=== PATIENT | female | born 1970 | race Caucasian/White ===

== ENCOUNTER 2022-11-23 14:51 | Emergency (ER) | payer OTHER, SELFPAY ==
[2022-11-23] VITALS (8 sets, daily range): BP systolic 112–136; BP diastolic 51–74; PULSE 100–142; RESP 14–22; TEMP 36.6–37.2; O2SAT 98–100; BMI 41.5
--- NOTE | ~2022-11-23 | US_ITS ---
EXAMINATION: US PELVIS CLINICAL INFORMATION: Abnormal vaginal bleeding. COMPARISON: None. TECHNIQUE: Ultrasound of the pelvis is performed using both transabdominal and transvaginal transducers along with Doppler. Transvaginal imaging is performed due to inadequate visualization transabdominally. FINDINGS: UTERUS: The uterus is anteverted and measures 12 x 5.3 x 6 cm. The double wall endometrial thickness is 12 mm. There is complex fluid within the endometrial cavity without Doppler detectable vascular flow. The uterus is smooth in contour and has normal myometrial echogenicity. No visible fibroid. Within the region of the cervix there are lobulated, heterogeneous soft tissue structures measuring approximately 6.1 x 4.6 x 4.6 cm and 3.4 x 3.5 x 4.6 cm with Doppler detectable vascular flow. ADNEXA: Both ovaries are visualized. There is normal color flow to the adnexa. There is no ovarian torsion. There is no pelvic ascites or fluid collection. Right ovary measures 2.8 x 1.9 x 1.9 cm. Right ovarian volume is 5.3 mL. Left ovary measures 4 x 3.9 x 2.9 cm. Left ovarian volume is 23.7 mL. Simple left ovarian cyst versus follicle measuring up to 2.6 cm. US/US pelvic and transvaginal IMPRESSION: 1. Lobulated, heterogeneous soft tissue structures within the region of the cervix measuring up to 6.1 and 4.6 cm with Doppler detectable vascular flow. Findings are concerning for malignancy. Direct visualization could help further evaluate. 2. Complex fluid within the endometrial cavity without Doppler detectable vascular flow. 3. Simple left ovarian cyst versus follicle measuring 2.6 cm.
--- NOTE | 2022-11-23 14:56 | ED.GENADULT ---
HPI - General Adult General Chief complaint: Vaginal Bleeding <NINFA Lundy - Last Filed: 11/23/22 15:01> Stated complaint: lightheaded, Heavy menstrual bleeding <NINFA Lundy - Last Filed: 11/23/22 15:01> Time Seen by Provider: 11/23/22 15:26 <NINFA Lundy - Last Filed: 11/23/22 15:01> Source: patient <Sanaz Estrella NP - Last Filed: 11/23/22 18:33> Mode of arrival: ambulatory <Sanaz Estrella NP - Last Filed: 11/23/22 18:33> Limitations: no limitations <DONTRELL Hawk Last Filed: 11/23/22 18:33> History of Present Illness HPI narrative: 52-year-old female previously healthy who presents to the emergency room with heavy menstrual bleeding for 10 days. Patient reports that over the last 11 months she has had heavy and irregular bleeding. Prior to this she went over 1 year without having any menstrual cycles. Patient reports she started bleeding 10 days ago but over the last 4 days she did increase in bleeding using more than 1 pad per hour w/clots. Patient reports yesterday she started to feel dizzy when she moved around, short of breath and very weak. Patient denies any associated cramping, pain. Patient denies any AC therapy use. Patient last had a Pap smear in 2007 when she saw hand edger and reportedly it was normal. She has not seen a hand edger since 2007. <Sanaz Estrella NP - Last Filed: 11/23/22 18:33> Related Data Allergies/adverse reactions: Allergies Allergy/AdvReac Type Severity Reaction Status Date / Time No Known Allergies Allergy Verified 11/23/22 15:01 <NINFA Lundy - Last Filed: 11/23/22 15:01> Review of Systems Review of Systems: Yes all other systems are reviewed and are negative <Sanaz Estrella NP - Last Filed: 11/23/22 18:33> Constitutional: Constitutional: Reports no additional constitutional complaints, Denies body ache(s), Denies chills, Denies fever(s), Denies headache(s) and Denies weakness <Sanaz Estrella LADDER OPERATOR - Last Filed: 11/23/22 18:33> Eyes: Eyes: Reports no additional eye complaints and Denies change in vision <Sanaz Estrella LADDER OPERATOR - Last Filed: 11/23/22 18:33> ENT: Reports system reviewed and no additional complaints, except as documented, Denies dizziness, Denies headache(s), Denies nasal congestion, Denies nasal discharge and Denies neck pain <Sanaz Estrella LADDER OPERATOR - Last Filed: 11/23/22 18:33> Cardiovascular: Cardiovascular: Reports no additional cardiovascular complaints, Denies chest pain, Denies leg edema and Denies dyspnea <Sanaz Estrella LADDER OPERATOR - Last Filed: 11/23/22 18:33> Respiratory: Respiratory: Reports no additional respiratory complaints, Denies cough and Denies dyspnea <Sanaz Estrella LADDER OPERATOR - Last Filed: 11/23/22 18:33> Gastrointestinal: Gastrointestinal: Reports no additional gastrointestinal complaints, Denies abdominal pain, Denies diarrhea, Denies nausea and Denies vomiting <Sanaz Estrella LADDER OPERATOR - Last Filed: 11/23/22 18:33> Genitourinary: Genitourinary: Reports no additional female genitourinary complaints, Reports abnormal vaginal bleeding and Denies pelvic pain <Sanaz Estrella LADDER OPERATOR - Last Filed: 11/23/22 18:33> Musculoskeletal: Musculoskeletal: Reports no additional musculoskeletal complaints, Denies back pain, Denies arthralgias, Denies joint swelling, Denies neck pain, Denies numbness and Denies tingling <Sanaz Estrella LADDER OPERATOR - Last Filed: 11/23/22 18:33> Integumentary/Breasts: Skin/Breast: Reports system reviewed and no additional complaints, except as docu and Denies rash <Sanaz Estrella LADDER OPERATOR - Last Filed: 11/23/22 18:33> Neurologic: Reports system reviewed and no additional complaints, except as documented, Denies dizziness, Denies headache(s), Denies numbness, Denies tingling and Denies weakness <Sanaz Estrella LADDER OPERATOR - Last Filed: 11/23/22 18:33> PMFSH Past Medical History Attestation statement: The following information was validated with the patient. <Sanaz Estrella NP - Last Filed: 11/23/22 18:33> Source: old records reviewed and nursing notes reviewed <Sanaz Estrella NP - Last Filed: 11/23/22 18:33> Social History Social History: Social History Alcohol intake: current Alcohol intake frequency: a few times a month Smoked in Last 30 Days: No Use of substances other than those prescribed or required for medical reasons: No Advance Directives: No Advance Directives Information Provided: No Patient : No <NINFA Lundy - Last Filed: 11/23/22 15:01> Physical Exam ED Vital Signs: Vital Signs - 24 hr 11/23/22 14:56 11/23/22 16:42 11/23/22 15:34 Temperature 97.9 F Pulse Rate 129 H 105 H 100 Respiratory Rate 20 22 H Blood Pressure 136/65 129/61 Pulse Oximetry 100 98 Oxygen Delivery Method Room Air Room Air 11/23/22 17:07 11/23/22 17:09 11/23/22 18:17 Temperature 98.7 F Pulse Rate 120 H 142 H 103 H Respiratory Rate 14 Blood Pressure 121/57 L 112/51 L 130/74 Pulse Oximetry Oxygen Delivery Method 11/23/22 18:27 Temperature Pulse Rate 108 H Respiratory Rate 19 Blood Pressure 132/74 Pulse Oximetry 98 Oxygen Delivery Method Room Air BMI result Body Mass Index 41.5 <NINFA Lundy - Last Filed: 11/23/22 15:01> Vital Signs - 24 hr 11/23/22 14:56 11/23/22 16:42 11/23/22 15:34 Temperature 97.9 F Pulse Rate 129 H 105 H 100 Respiratory Rate 20 22 H Blood Pressure 136/65 129/61 Pulse Oximetry 100 98 Oxygen Delivery Method Room Air Room Air 11/23/22 17:07 11/23/22 17:09 11/23/22 18:17 Temperature 98.7 F Pulse Rate 120 H 142 H 103 H Respiratory Rate 14 Blood Pressure 121/57 L 112/51 L 130/74 Pulse Oximetry Oxygen Delivery Method 11/23/22 18:27 Temperature Pulse Rate 108 H Respiratory Rate 19 Blood Pressure 132/74 Pulse Oximetry 98 Oxygen Delivery Method Room Air BMI result Body Mass Index 41.5 <Sanaz Estrella NP - Last Filed: 11/23/22 18:33> Const General: cooperative, healthy appearing, comfortable and no acute distress <Sanaz Estrella LADDER OPERATOR - Last Filed: 11/23/22 18:33> Orientation/consciousness: patient oriented x3 <Sanaz Estrella LADDER OPERATOR - Last Filed: 11/23/22 18:33> Limitations: no limitations <Sanaz Estrella LADDER OPERATOR - Last Filed: 11/23/22 18:33> HENMT Head: Yes normal to inspection <Sanaz Estrella LADDER OPERATOR - Last Filed: 11/23/22 18:33> Ears: hearing grossly normal bilaterally <Sanaz Estrella LADDER OPERATOR - Last Filed: 11/23/22 18:33> Eyes Other: Pale conjunctivae <Sanaz Estrella LADDER OPERATOR - Last Filed: 11/23/22 18:33> General: appearance normal, both eyes and all related structures <Sanaz Estrella LADDER OPERATOR - Last Filed: 11/23/22 18:33> Neck Neck: Yes normal visual inspection <Sanaz Estrella LADDER OPERATOR - Last Filed: 11/23/22 18:33> Chest Chest palpation & inspection: normal inspection of the chest <Sanaz Estrella LADDER OPERATOR - Last Filed: 11/23/22 18:33> Resp Effort & Inspection: normal respiratory effort <Sanaz Estrella LADDER OPERATOR - Last Filed: 11/23/22 18:33> Auscultation: clear to auscultation bilaterally <Sanaz Estrella LADDER OPERATOR - Last Filed: 11/23/22 18:33> Cardio Rate: tachycardic (120) <Sanaz Estrella LADDER OPERATOR - Last Filed: 11/23/22 18:33> Rhythm: regular rhythm <Sanaz Estrella LADDER OPERATOR - Last Filed: 11/23/22 18:33> Peripheral pulses: Peripheral pulses 2+ throughout <Sanaz Estrella LADDER OPERATOR - Last Filed: 11/23/22 18:33> GI Inspection: Yes normal to inspection <Sanaz Estrella LADDER OPERATOR - Last Filed: 11/23/22 18:33> Palpation (GI): Soft to palpation and nontender <Sanaz Estrella LADDER OPERATOR - Last Filed: 11/23/22 18:33> Other: [employer] technician present Moderate bleeding-evacuated several large clots from the vaginal canal. +cervical mass seen <Sanaz Estrella LADDER OPERATOR - Last Filed: 11/23/22 18:33> General: Yes no CVA tenderness <Sanaz Estrella, LADDER OPERATOR - Last Filed: 11/23/22 18:33> External Female Exam: normal external appearance <Sanaz Estrella LADDER OPERATOR - Last Filed: 11/23/22 18:33> Speculum Exam - Vagina: normal appearance of the vagina <Sanaz Estrella LADDER OPERATOR - Last Filed: 11/23/22 18:33> Speculum Exam - Cervix: Cervical mass present <Sanaz Estrella LADDER OPERATOR - Last Filed: 11/23/22 18:33> Back/Spine/Pelvis Back: no CVA tenderness <Sanaz Estrella LADDER OPERATOR - Last Filed: 11/23/22 18:33> Thoracic/Lumbar Spine: thoracic and lumbar spine normal to inspection <Sanaz Estrella LADDER OPERATOR - Last Filed: 11/23/22 18:33> Skin Other: +pale <Sanaz Estrella LADDER OPERATOR - Last Filed: 11/23/22 18:33> General skin exam: no rashes or lesions noted <Sanaz Estrella LADDER OPERATOR - Last Filed: 11/23/22 18:33> Neuro General: patient oriented x3 and moves all extremities <Sanaz Estrella LADDER OPERATOR - Last Filed: 11/23/22 18:33> Cognition (Neuro): normal cognition <Sanaz Estrella LADDER OPERATOR - Last Filed: 11/23/22 18:33> Gait exam (Neuro): Normal gait present <Sanaz Estrella LADDER OPERATOR - Last Filed: 11/23/22 18:33> Extrem General: Yes normal to inspection, Yes no pedal edema and Yes no calf tenderness <Sanaz Estrella NP - Last Filed: 11/23/22 18:33> Course Course Course Narrative: RME performed by Violetta Gilliam PA-C. Patient is a 52 year old female presenting to the emergency department with vaginal bleeding. Patient states that her period has been heavy. Patient states that it started last week but has been passing clots extensively. <NINFA Lundy - Last Filed: 11/23/22 15:01> Reevaluation(s) Reevaluation #1: Patient with a hemoglobin of 3.3 and hematocrit of 12.6. Patient had a type and screen drawn. Patient consented for blood. Patient had 2 units of blood ordered. Orthostatics show elevation in heart rate but blood pressure stable throughout. Pelvic ultrasound concerning for endometrial mass with cervical mass seen on pelvic exam. See discussion with gynecology. <Sanaz Estrella NP - Last Filed: 11/23/22 18:33> Medical Decision Making Medical Decision Making MDM Narrative: 52 yo female here with 10 days of heavy vaginal bleeding (increased last 4 days 1 pad/hr) now feeling dizzy, weak and short of breath. On arrival tachycardic, pale in appearance. BP stable Abdomen soft/nontender Will need labs including type & screen, pelvic US, pelvic exam, COVID screen, UA <DONTRELL Hawk Last Filed: 11/23/22 18:33> Differential Diagnosis Differential Diagnoses: The differential diagnosis associated with the presentation includes <DONTRELL Hawk Last Filed: 11/23/22 18:33> uterine fibroid, endometrial malignancy, dysfunctional uterine bleeding, anemia <DONTRELL Hawk Last Filed: 11/23/22 18:33> Admission/Observation Consideration of admission/observation: Escalation of care including admission/observation considered <DONTRELL Hawk Last Filed: 11/23/22 18:33> Patient with ultrasound concerning for endometrial malignancy with cervical mass on exam. Patient evaluated by Gynecology at the bedside. Concerned that patient will need to be evaluated by Gynecology Oncology which is not available here at this facility. Recommended transfer to tertiary care center for further evaluation. Called and spoke to [facility] transfer line. They accepted patient to the emergency room with accepting physician Dr. Brooks. We did attempt to call both [facility] and [facility] but they are close to transfers <Sanaz Estrella NP - Last Filed: 11/23/22 18:33> Consult Healthcare Provider Management of the patient was discussed with: [employer] Inspector <Sanaz Estrella NP - Last Filed: 11/23/22 18:33> Patient with abnormal ultrasound concerning for endometrial mass with cervical mass on exam with active bleeding with hemoglobin of 3 and hematocrit of 12. Spoke to gynecology on-call Dr. Evelyn Lucas who did come in and evaluate the patient at the bedside. <Sanaz Estrella NP - Last Filed: 11/23/22 18:33> Lab Data MDM Lab Attestation statement: I reviewed the patient's lab results. <Sanaz Estrella NP - Last Filed: 11/23/22 18:33> Result Diagrams: 11/23/22 15:46 11/23/22 15:46 <NINFA Lundy - Last Filed: 11/23/22 15:01> Labs: Lab Results 11/23/22 11/23/22 11/23/22 Range/Units 15:46 15:46 16:42 WBC 6.5 (4.8-10.8) X10*3/uL RBC 2.15 L (4.20-5.50) X10*6/uL Hgb 3.3 L* (12.0-16.0) g/dl Hct 12.6 L* (37.0-47.0) % MCV 58.6 L (80.0-98.0) fL MCH 15.3 L (27.0-33.0) pg MCHC 26.2 L (31.0-35.0) g/dl RDW 21.5 H (11.0-16.0) % Plt Count 166 (160-400) X10*3/uL MPV Not Reportable Immature Gran % (Auto) 0.6 H (0.0-0.4) % Neut % (Auto) 65.7 (45-73) % Lymph % (Auto) 23.7 (20-40) % Kaufman % (Auto) 8.4 (2-11) % Eos % (Auto) 1.1 (0-4) % Baso % (Auto) 0.5 (0-2) % Lymph # (Auto) 1.5 (1.2-4.9) X10*3/uL Kaufman # (Auto) 0.6 (0.1-1.2) X10*3/uL Eos # (Auto) 0.1 (0.0-0.4) X10*3/uL Baso # (Auto) 0.0 (0.0-0.2) X10*3/uL Abs Immat Gran (auto) 0.04 H (0.00-0.03) X10*3/uL Absolute Neuts (auto) 4.3 (2.0-8.3) x10*3/uL Absolute Nucleated RBC 0.000 (0.0-0.012) X10*3/uL Nucleated RBC % (auto) 0.0 (0.0-0.2) /100WBC PT (10.0-13.1) SEC INR (0.9-1.1) APTT (26.0-36.4) SEC Sodium 139 (135-145) mmol/L Potassium 4.1 (3.3-5.1) mmol/L Chloride 108 (96-108) mmol/L Carbon Dioxide 24 (22-29) mmol/L Anion Gap 11 L (12-20) BUN 10 (9-16) mg/dL Creatinine 0.81 (0.5-1.4) mg/dL Estim Creat Clear Calc 103.2 Estimated GFR > 60 Random Glucose 119 H (60-115) mg/dL Calcium 8.6 (8.4-10.2) mg/dL Magnesium 1.9 (1.6-2.6) mg/dL Total Bilirubin 0.2 (0.0-1.0) mg/dL AST 24 (5-31) U/L ALT 8 (0-31) U/L Alkaline Phosphatase 46 (39-117) U/L Total Protein 5.4 L (6.5-8.0) g/dL Albumin 3.3 L (3.5-5.0) g/dL COVID-19 ([facility]) (Negative) COVID-19 Clin Com Blood Type A Positive Antibody Screen NEGATIVE Crossmatch See Detail 11/23/22 11/23/22 Range/Units 16:43 16:44 WBC (4.8-10.8) X10*3/uL RBC (4.20-5.50) X10*6/uL Hgb (12.0-16.0) g/dl Hct (37.0-47.0) % MCV (80.0-98.0) fL MCH (27.0-33.0) pg MCHC (31.0-35.0) g/dl RDW (11.0-16.0) % Plt Count (160-400) X10*3/uL MPV Immature Gran % (Auto) (0.0-0.4) % Neut % (Auto) (45-73) % Lymph % (Auto) (20-40) % Kaufman % (Auto) (2-11) % Eos % (Auto) (0-4) % Baso % (Auto) (0-2) % Lymph # (Auto) (1.2-4.9) X10*3/uL Kaufman # (Auto) (0.1-1.2) X10*3/uL Eos # (Auto) (0.0-0.4) X10*3/uL Baso # (Auto) (0.0-0.2) X10*3/uL Abs Immat Gran (auto) (0.00-0.03) X10*3/uL Absolute Neuts (auto) (2.0-8.3) x10*3/uL Absolute Nucleated RBC (0.0-0.012) X10*3/uL Nucleated RBC % (auto) (0.0-0.2) /100WBC PT 12.1 (10.0-13.1) SEC INR 1.1 (0.9-1.1) APTT 24.9 L (26.0-36.4) SEC Sodium (135-145) mmol/L Potassium (3.3-5.1) mmol/L Chloride (96-108) mmol/L Carbon Dioxide (22-29) mmol/L Anion Gap (12-20) BUN (9-16) mg/dL Creatinine (0.5-1.4) mg/dL Estim Creat Clear Calc Estimated GFR Random Glucose (60-115) mg/dL Calcium (8.4-10.2) mg/dL Magnesium (1.6-2.6) mg/dL Total Bilirubin (0.0-1.0) mg/dL AST (5-31) U/L ALT (0-31) U/L Alkaline Phosphatase (39-117) U/L Total Protein (6.5-8.0) g/dL Albumin (3.5-5.0) g/dL COVID-19 ([facility]) Negative (Negative) COVID-19 Clin Com See Note Blood Type Antibody Screen Crossmatch <NINFA Lundy - Last Filed: 11/23/22 15:01> Lab Results 11/23/22 11/23/22 11/23/22 Range/Units 15:46 15:46 16:42 WBC 6.5 (4.8-10.8) X10*3/uL RBC 2.15 L (4.20-5.50) X10*6/uL Hgb 3.3 L* (12.0-16.0) g/dl Hct 12.6 L* (37.0-47.0) % MCV 58.6 L (80.0-98.0) fL MCH 15.3 L (27.0-33.0) pg MCHC 26.2 L (31.0-35.0) g/dl RDW 21.5 H (11.0-16.0) % Plt Count 166 (160-400) X10*3/uL MPV Not Reportable Immature Gran % (Auto) 0.6 H (0.0-0.4) % Neut % (Auto) 65.7 (45-73) % Lymph % (Auto) 23.7 (20-40) % Kaufman % (Auto) 8.4 (2-11) % Eos % (Auto) 1.1 (0-4) % Baso % (Auto) 0.5 (0-2) % Lymph # (Auto) 1.5 (1.2-4.9) X10*3/uL Kaufman # (Auto) 0.6 (0.1-1.2) X10*3/uL Eos # (Auto) 0.1 (0.0-0.4) X10*3/uL Baso # (Auto) 0.0 (0.0-0.2) X10*3/uL Abs Immat Gran (auto) 0.04 H (0.00-0.03) X10*3/uL Absolute Neuts (auto) 4.3 (2.0-8.3) x10*3/uL Absolute Nucleated RBC 0.000 (0.0-0.012) X10*3/uL Nucleated RBC % (auto) 0.0 (0.0-0.2) /100WBC PT (10.0-13.1) SEC INR (0.9-1.1) APTT (26.0-36.4) SEC Sodium 139 (135-145) mmol/L Potassium 4.1 (3.3-5.1) mmol/L Chloride 108 (96-108) mmol/L Carbon Dioxide 24 (22-29) mmol/L Anion Gap 11 L (12-20) BUN 10 (9-16) mg/dL Creatinine 0.81 (0.5-1.4) mg/dL Estim Creat Clear Calc 103.2 Estimated GFR > 60 Random Glucose 119 H (60-115) mg/dL Calcium 8.6 (8.4-10.2) mg/dL Magnesium 1.9 (1.6-2.6) mg/dL Total Bilirubin 0.2 (0.0-1.0) mg/dL AST 24 (5-31) U/L ALT 8 (0-31) U/L Alkaline Phosphatase 46 (39-117) U/L Total Protein 5.4 L (6.5-8.0) g/dL Albumin 3.3 L (3.5-5.0) g/dL COVID-19 ([facility]) (Negative) COVID-19 Clin Com Blood Type A Positive Antibody Screen NEGATIVE Crossmatch See Detail 11/23/22 11/23/22 Range/Units 16:43 16:44 WBC (4.8-10.8) X10*3/uL RBC (4.20-5.50) X10*6/uL Hgb (12.0-16.0) g/dl Hct (37.0-47.0) % MCV (80.0-98.0) fL MCH (27.0-33.0) pg MCHC (31.0-35.0) g/dl RDW (11.0-16.0) % Plt Count (160-400) X10*3/uL MPV Immature Gran % (Auto) (0.0-0.4) % Neut % (Auto) (45-73) % Lymph % (Auto) (20-40) % Kaufman % (Auto) (2-11) % Eos % (Auto) (0-4) % Baso % (Auto) (0-2) % Lymph # (Auto) (1.2-4.9) X10*3/uL Kaufman # (Auto) (0.1-1.2) X10*3/uL Eos # (Auto) (0.0-0.4) X10*3/uL Baso # (Auto) (0.0-0.2) X10*3/uL Abs Immat Gran (auto) (0.00-0.03) X10*3/uL Absolute Neuts (auto) (2.0-8.3) x10*3/uL Absolute Nucleated RBC (0.0-0.012) X10*3/uL Nucleated RBC % (auto) (0.0-0.2) /100WBC PT 12.1 (10.0-13.1) SEC INR 1.1 (0.9-1.1) APTT 24.9 L (26.0-36.4) SEC Sodium (135-145) mmol/L Potassium (3.3-5.1) mmol/L Chloride (96-108) mmol/L Carbon Dioxide (22-29) mmol/L Anion Gap (12-20) BUN (9-16) mg/dL Creatinine (0.5-1.4) mg/dL Estim Creat Clear Calc Estimated GFR Random Glucose (60-115) mg/dL Calcium (8.4-10.2) mg/dL Magnesium (1.6-2.6) mg/dL Total Bilirubin (0.0-1.0) mg/dL AST (5-31) U/L ALT (0-31) U/L Alkaline Phosphatase (39-117) U/L Total Protein (6.5-8.0) g/dL Albumin (3.5-5.0) g/dL COVID-19 ([facility]) Negative (Negative) COVID-19 Clin Com See Note Blood Type Antibody Screen Crossmatch <Sanaz Estrella NP - Last Filed: 11/23/22 18:33> Independent Interpretation I performed an independent interpretation of an: EKG (I independently reviewed the EKG which shows sinus tachycardia with rate of 106, normal pr, normal qrs, normal qt ) and Ultrasound <Sanaz Estrella NP - Last Filed: 11/23/22 18:33> Interpretation: I independently reviewed the ultrasound and agree with the radiologist's reading <Sanaz Estrella NP - Last Filed: 11/23/22 18:33> Radiology Impression Discussion of test interpretation with radiology: I have reviewed the radiologist's reading. <Sanaz Estrella NP - Last Filed: 11/23/22 18:33> Radiologist Impression: [place] [id number] Ultrasound Report Signed Patient: Tiarra Bowden MR#: [id number] : 1970 Acct:[id number] Age/Sex: 52 / F ADM Date: 11/23/22 Loc: .ED Attending Dr: Ordering Physician: Violetta Gilliam Date of Service: 11/23/22 Procedure(s): US pelvic and transvaginal Accession Number(s): [id number] cc: Violetta Gilliam~ EXAMINATION:? US PELVIS CLINICAL INFORMATION:? Abnormal vaginal bleeding. COMPARISON: None. TECHNIQUE: Ultrasound of the pelvis is performed using both transabdominal and transvaginal transducers along with Doppler. Transvaginal imaging is performed due to inadequate visualization transabdominally. FINDINGS: UTERUS: The uterus is anteverted and measures 12 x 5.3 x 6 cm.? The double wall endometrial thickness is 12 mm. There is complex fluid within the endometrial cavity without Doppler detectable vascular flow. The uterus is smooth in contour and has normal myometrial echogenicity. No visible fibroid. Within the region of the cervix there are lobulated, heterogeneous soft tissue structures measuring approximately 6.1 x 4.6 x 4.6 cm and 3.4 x 3.5 x 4.6 cm with Doppler detectable vascular flow. ADNEXA: Both ovaries are visualized. There is normal color flow to the adnexa. There is no ovarian torsion. There is no pelvic ascites or fluid collection. Right ovary measures 2.8 x 1.9 x 1.9 cm. Right ovarian volume is 5.3 mL. Left ovary measures 4 x 3.9 x 2.9 cm. Left ovarian volume is 23.7 mL. Simple left ovarian cyst versus follicle measuring up to 2.6 cm. US/US pelvic and transvaginal IMPRESSION: 1.? Lobulated, heterogeneous soft tissue structures within the region of the cervix measuring up to 6.1 and 4.6 cm with Doppler detectable vascular flow. Findings are concerning for malignancy. Direct visualization could help further evaluate. ? 2.? Complex fluid within the endometrial cavity without Doppler detectable vascular flow. ? 3.? Simple left ovarian cyst versus follicle measuring 2.6 cm. ? <Sanaz Estrella NP - Last Filed: 11/23/22 18:33> Independent Historian Clinical information obtained from an independent historian. History obtained from or confirmed by: Friend <Sanaz Estrella NP - Last Filed: 11/23/22 18:33> Social Determinants Patient has no gynecology care outpatient <Sanaz Estrella NP - Last Filed: 11/23/22 18:33> Discharge Plan Discharge Clinical Impression: Vaginal bleeding, Anemia, Cervical mass, Endometrial mass <NINFA Lundy - Last Filed: 11/23/22 15:01> Patient Disposition: [facility] <NINFA Lundy - Last Filed: 11/23/22 15:01> Transfer Details: [facility] <NINFA Lundy - Last Filed: 11/23/22 15:01> [facility] <Sanaz Estrella NP - Last Filed: 11/23/22 18:33>
--- NOTE | 2022-11-23 15:01 | ECG_ITS ---
Test Reason : Tachycardia Blood Pressure : / mmHG Vent. Rate : 106 BPM Atrial Rate : 106 BPM P-R Int : 152 ms QRS Dur : 084 ms QT Int : 316 ms P-R-T Axes : 063 047 -05 degrees QTc Int : 419 ms Sinus tachycardia Nonspecific ST and T wave abnormality Abnormal ECG No previous ECGs available Referred By: Violetta Gilliam Electronically Signed By:BLOSSOM DUVAL
--- NOTE | 2022-11-23 15:29 | PC.NURSE ---
pt is difficult stick, unable to obtain blood draw or get IV at this time, asked for assistance from other nurses
[2022-11-23 15:52] LABS: MANUAL DIFF FLAG NO
[2022-11-23 16:09] LABS: Basophils Percent Auto 0.5 % (0-2); Eosinophils Absolute Auto 0.1 X10*3/uL (0.0-0.4); Eosinophils Percent Auto 1.1 % (0-4); Imm Gran Abs Auto 0.04 X10*3/uL (0.00-0.03); Imm Gran Pct Auto 0.6 % (0.0-0.4); Lymphocytes Absolute Auto 1.5 X10*3/uL (1.2-4.9); Lymphocytes Percent Auto 23.7 % (20-40); Mean Corpuscular HGB Conc 26.2 g/dl (31.0-35.0); Mean Corpuscular Hemoglobin 15.3 pg (27.0-33.0); Monocytes Absolute Auto 0.6 X10*3/uL (0.1-1.2); Monocytes Percent Auto 8.4 % (2-11); Neutrophils Absolute Auto 4.3 x10*3/uL (2.0-8.3); Neutrophils Percent Auto 65.7 % (45-73); PLT CLUMP 1; Red Blood Count 2.15 X10*6/uL (4.20-5.50); Red Cell Distribution Width 21.5 % (11.0-16.0); SCAN SMEAR FLAG 1
[2022-11-23 16:12] LABS: Alanine Aminotransferase 8 U/L (0-31); Albumin Level 3.3 g/dL (3.5-5.0); Alkaline Phosphatase 46 U/L (39-117); Anion Gap 11 (12-20); Aspartate Amino Transferase 24 U/L (5-31); Bilirubin Total 0.2 mg/dL (0.0-1.0); Blood Urea Nitrogen 10 mg/dL (9-16); Calcium 8.6 mg/dL (8.4-10.2); Carbon Dioxide 24 mmol/L (22-29); Chloride 108 mmol/L (96-108); Creatinine Clr Calc Pharmacy 103.2; Estimated Glomerular Filt Rate > 60; Glucose Random 119 mg/dL (60-115); Magnesium 1.9 mg/dL (1.6-2.6); Potassium 4.1 mmol/L (3.3-5.1); Sodium 139 mmol/L (135-145); Total Protein 5.4 g/dL (6.5-8.0)
[2022-11-23 16:13] LABS: Hemoglobin 3.3 g/dl (12.0-16.0); Mean Corpuscular Volume 58.6 fL (80.0-98.0)
[2022-11-23 16:14] LABS: PLT ABN DIST 1; White Blood Count 6.5 X10*3/uL (4.8-10.8)
[2022-11-23 16:15] LABS: Hematocrit 12.6 % (37.0-47.0)
[2022-11-23 16:17] LABS: Platelet Count 166 X10*3/uL (160-400)
[2022-11-23 17:03] LABS: INTERNATIONAL NORM RATIO 1.1 (0.9-1.1); Prothrombin Time 12.1 SEC (10.0-13.1)
[2022-11-23 17:06] LABS: Partial Thromboplastin Time 24.9 SEC (26.0-36.4)
[2022-11-23 17:23] LABS: COVID-19 Test Negative (Negative); IDNOW Serial# 16C4AD1C
--- NOTE | 2022-11-23 17:32 | PC.NURSE ---
pt has two IVs placed by JOVANI Aguilar. 20g RW and 18g LW. Pelvic exam completed by DONTRELL Yo with this RN at bedside, pt tolerated fairly well. Pt reports no pain, VSS at this time with blood pressure being on soft side 110s/60s
--- NOTE | 2022-11-23 18:17 | P.CONOB_ITS ---
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 The patient had 11 months of amenorrhea followed by 18 months of heavy irregular menstrual cycles, last 10 days vaginal bleeding was very heavy associated with pelvic cramping and passage of blood clots.? Last Pap smear in 2007 , the patient has not had any gynecological evaluation last 15 years. H&H in the emergency room was 3.3/12.6. Pelvic ultrasound showed Lobulated mass of the cervix measuring up to 6.1 and 4.6 cm with Doppler detectable vascular flow. Findings are concerning for malignancy. 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 Review of Systems ROS Unobtainable: All systems reviewed & are unremarkable except as noted in HPI and below Cardiovascular: Denies Palpatations, Loss of consciousness or Chest pain Respiratory: Denies Cough, Wheezing or Shortness of breath Musculoskeletal: Denies Low back pain Gastrointestinal: Denies Heartburn, Constipation, Diarrhea, Nausea or Vomiting Genitourinary: Denies Pain with urination, Burning with urination or Urinary frequency Neurological: Denies Migranes Psychological: Denies Depression [facility] Social History Social History Alcohol intake: current Alcohol intake frequency: a few times a month Smoked in Last 30 Days: No Use of substances other than those prescribed or required for medical reasons: No Advance Directives: No Advance Directives Information Provided: No Patient : No Meds Allergies Allergy/AdvReac Type Severity Reaction Status Date / Time No Known Allergies Allergy Verified 11/23/22 15:01 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 AIDES TEACHER Physical Exam Vitals Vital signs: Temp Pulse Resp BP Pulse Ox O2 Del Method 98.7 F 103 H 14 130/74 98 11/23/22 18:17 11/23/22 18:17 11/23/22 18:17 11/23/22 18:17 11/23/22 16:42 11/23/22 16:42 BMI result Body Mass Index 41.5 Constitutional General Appearance: Healthy appearing, Well-nourished and Well-developed Psychiatric Mood and Affect: active and alert, normal mood and normal affect Skin Appearance: No rashes and No lesions Lungs Respiratory Effort: No intercostal retractions Auscultation: Clear to auscultation Cardiovascular Auscultation: RRR Abdomen Auscultation/Inspection/Palpation: Normal bowel sounds, Soft, Non-distended and No tenderness Female Genitalia (Pelvic) Vulva: No lesions Vagina: Nontender Uterus: Normal size Adnexa/Parametria: Adnexal Tenderness: None, Adnexal Mass: None, Parametrial Tenderness: None and Parametrial Mass: None Additional Comments: Active vaginal bleeding, blood clots per vagina, 6 cm lobulated mass protruding through the cervix, filling up most the upper vaginal canal, cervix dilated. 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 - Results Labs 11/23/22 15:46 11/23/22 15:46 Labs: Short CBC 11/23/22 Range/Units 15:46 WBC 6.5 (4.8-10.8) X10*3/uL Hgb 3.3 L* (12.0-16.0) g/dl Hct 12.6 L* (37.0-47.0) % Plt Count 166 (160-400) X10*3/uL BMP 11/23/22 15:46 Sodium 139 Potassium 4.1 Chloride 108 Carbon Dioxide 24 BUN 10 Creatinine 0.81 Calcium 8.6 Liver Function 11/23/22 Range/Units 15:46 Total Bilirubin 0.2 (0.0-1.0) mg/dL AST 24 (5-31) U/L ALT 8 (0-31) U/L Alkaline Phosphatase 46 (39-117) U/L Albumin 3.3 L (3.5-5.0) g/dL Antibody Screen Antibody Screen NEGATIVE 11/23/22 16:42 Imaging US - abdomen: Radiologist's impression: ITS Impressions Pelvic/Transvag US 11/23/22 16:18 IMPRESSION: 1. Lobulated, heterogeneous soft tissue structures within the region of the cervix measuring up to 6.1 and 4.6 cm with Doppler detectable vascular flow. Findings are concerning for malignancy. Direct visualization could help further evaluate. 2. Complex fluid within the endometrial cavity without Doppler detectable vascular flow. 3. Simple left ovarian cyst versus follicle measuring 2.6 cm. Assessment and Plan (1) Abnormal uterine bleeding (AUB): Status: Acute Discussed with the patient the finding on physical exam showing a 6 cm lobulated mass filling up most of upper vaginal , differential diagnosis discussed with the patient includes but not limited to: submucosal myoma/Alberto sarcoma protruding through the cervix, endometrial malignancy, cervical tumor, others. I recommend the following: endometrial biopsy and cervical protruding mass biopsy, transferr to a tertiary care center where the patient needs to be admitted to be stabilized with blood transfusion and treatment for abnormal uterine bleeding , where a [facility] [employer] [facility] service is available in case the patient's pathology shows malignancy or in the event when prior to receiving the pathology results the patient needs an emergent surgical intervention. All questions answered, the patient verbalized understanding and agreed with the plan. Discussed recommendations/treatment plan with Sanaz Estrella NP (2) Anemia: Status: Acute Recommend multiple Blood transfusion to stabilize the patient and correct any acute Time Spent With Patient Time: Total time managing care of this patient today ____ minutes.
--- NOTE | 2022-11-23 18:25 | PC.NURSE ---
Dr. Rivas was at bedside for additional pelvic exam, this RN at bedside to assist, pt tolerated procedure fairly well. Dr. Roth believes that pt is fit for transfer out, pt on board with plan. first unit of blood started and pt is tolerating well so far at this time
--- NOTE | 2022-11-23 19:36 | PC.NURSE ---
Pt continues to tolerate blood products well with no apparent distress. Pt verbalizes that she does not feel dizzy and has no pain at this time . Ambulance here to pick patient up and bring pt to [facility]. report called by this RN to JOVANI Liriano at [place]
--- NOTE | 2022-11-24 18:46 | PC.NURSE ---
late entry: pt blood still transfusing upon transfer to , pt continued to tolerate well stating that she feels no symptoms of adverse reaction
== END 2022-11-23 19:36 | disposition short-term general hospital (02) ==
PROVIDERS: Nurse Practitioner Family; Physician Assistant Medical; Emergency Provider Internal Medicine
DX: N93.9 Abnormal uterine and vaginal bleeding, unspecified (principal); D64.9 Anemia, unspecified; R93.89 Abnormal findings on diagnostic imaging of other specified body structures; D39.0 Neoplasm of uncertain behavior of uterus; D49.59 Neoplasm of unspecified behavior of other genitourinary organ; R00.0 Tachycardia, unspecified; N83.202 Unspecified ovarian cyst, left side; Z20.822 Contact with and (suspected) exposure to COVID-19
CPT/HCPCS: 36415; 36430; 76830; 76856; 80053; 83735; 85025; 85610; 85730; 86850; 86900; 86901; 86923; 87635; 93005; 99285; P9016